=== PATIENT | male | born 1950 | race Two or more races ===

== ENCOUNTER 2018-03-16 16:47 | Emergency (ER) | payer MEDICARE ==
[~2018-03-16] VITALS: Ht 167.6 cm; Wt 70.0 kg
[2018-03-16] MEDS ORDERED: KETOROLAC 30MG/ML VIAL IV STA (18:25)
[2018-03-16] MEDS ORDERED: SODIUM CHLORIDE 0.9% 1,000 ML IV ONE (18:25)
[2018-03-16] MEDS ORDERED: BACITRACIN ZINC OINT UDPKT TOP ONE (18:30)
[2018-03-16] MEDS ORDERED: TETANUS, DIPHTHERIA, PERTUSSIS VAC/PF 0.5ML (>7YR OLD) IM ONE (18:30)
[2018-03-16] MEDS ORDERED: LIDOCAINE 1%/EPI 1:100,000 10 ML VIAL IJ ONE (18:30)
[2018-03-16] MEDS ORDERED: LIDOCAINE HCL/EPINEPHRINE 1%-EPI 1:100,000 20 ML VIAL IJ SCH (18:44)
[2018-03-16 19:09] VITALS: BP 165/78
[2018-03-16 19:31] LABS: BASOPHILS % 0.2 % (0.0-2.0); EOSINOPHILS % 3.8 % (0.0-5.0); HEMATOCRIT. 40.5 % (42.0-52.0); LYMPHOCYTES % 17.9 % (20.0-50.0); MEAN CORPUSCULAR HEMOGLOBIN 34.4 pg (28.0-32.0); MEAN CORPUSCULAR VOLUME 99.3 fL (80.0-94.0); MEAN PLATELET VOLUME 7.9 fl (7.4-10.4); MONOCYTES % 4.7 % (2.0-8.0); NEUTROPHILS % 73.4 % (40.0-76.0); PLATELET 181 x1000/uL (130-400); RED BLOOD CELL COUNT 4.08 mill/uL (4.7-6.1); RED CELL DISTRIBUTION WIDTH 12.6 % (11.6-14.6)
[2018-03-16 19:33] LABS: CHLORIDE 105 mEq/L (98-107)
== END 2018-03-16 20:41 | disposition home or self-care (01) ==
LOC: ER 16:47
DX: S01.01XA Laceration without foreign body of scalp, initial encounter (principal); R42 Dizziness and giddiness; W11.XXXA Fall on and from ladder, initial encounter; Y93.89 Activity, other specified; Y92.89 Other specified places as the place of occurrence of the external cause; Z23 Encounter for immunization; R03.0 Elevated blood-pressure reading, without diagnosis of hypertension
CPT/HCPCS: 12001; 36415; 70450; 80053; 85025; 90471; 90715; 96361; 96374; 99284; J1885; J3490; J7030